=== PATIENT | male | born 1950 | race Caucasian/White ===

== ENCOUNTER 2021-11-27 13:52 | Outpatient (CLI) | payer MEDICARE, BC, OTHER, SELFPAY ==
[2021-11-27 15:17] LABS: Basophils Absolute Auto 0.1 K/mm3 (0.0-0.1); Basophils Percent Auto 0.9 % (0.2-1.2); Eosinophils Absolute Auto 0.2 K/mm3 (0-0.3); Eosinophils Percent Auto 2.3 % (0-4.4); Hematocrit 43.3 % (42.0-52.0); Hemoglobin 15.2 g/dL (14.0-18.0); Immature Granulocyte Absolute 0.04 K/mm3 (0.00-0.031); Immature Granulocyte Percent A 0.6 % (0-0.5); Lymphocytes Absolute Auto 1.44 K/mm3 (0.9-3.2); Lymphocytes Percent Auto 22.2 % (18.3-44.2); Mean Corpuscular HGB Conc 35.1 g/dl (32-36); Mean Corpuscular Volume 93.9 fl (80-100); Mean Platelet Volume 10.1 fl (7.4-10.4); Monocytes Absolute Auto 0.4 K/mm3 (0.1-0.6); Monocytes Percent Auto 6.5 % (2.6-8.5); Neutrophils Absolute Auto 4.4 K/mm3 (1.3-6.7); Neutrophils Percent Auto 67.5 % (45.5-73.1); Platelet Count Result 196 k/mm3 (150-375); Red Blood Count 4.61 M/mm3 (4.6-6.20); Red Cell Distribution Width 12.4 % (11.5-14.5); White Blood Count 6.5 K/mm3 (4.5-10.0)
[2021-11-27 15:24] LABS: Alanine Aminotransferase 26 U/L (4-50); Albumin Level 4.7 g/dL (3.5-5.1); Alkaline Phosphatase 72 U/L (38-126); Anion Gap 9 mmol/L (8-16); Aspartate Amino Transferase 31 U/L (17-59); Bilirubin,Total 1.7 mg/dL (0.2-1.3); Blood Urea Nitrogen 22 mg/dL (9-20); Calcium 9.8 mg/dL (8.4-10.2); Carbon Dioxide 29 mmol/L (22-30); Chloride 100 mmol/L (98-107); Estimated Glomerular Filt Rate 54; Glucose 89 mg/dL (65-110); Sodium 138 mmol/L (137-145)
[2021-11-27 15:27] LABS: Prothrombin Time 13.5 Seconds (11.1-14.7)
[2021-11-27 15:28] LABS: Partial Thromboplastin Time 37.9 SECONDS (22.3-36.8)
== END 2021-11-27 13:53 | disposition home or self-care (01) ==
LOC: ANHSURGERY 13:57
PROVIDERS: PCP Internal Medicine; Visit Provider Urology
DX: Z01.818 Encounter for other preprocedural examination (principal); C61 Malignant neoplasm of prostate
CPT/HCPCS: 36415; 80053; 85025; 85610; 85730; 86850; 86900; 86901; 87086

== ENCOUNTER 2021-11-28 08:49 | Outpatient (CLI) | payer MEDICARE, BC, OTHER, SELFPAY ==
--- NOTE | 2021-11-28 09:00 | ECG_ITS ---
Measurements Intervals [place] Rate: 65 P: 9 NV: 244 QRS: -35 QRSD: 102 T: -3 QT: 413 QTc: 431 Interpretive Statements SINUS RHYTHM WITH FIRST DEGREE AV BLOCK LEFT AXIS DEVIATION DELAYED PRECORDIAL R/S TRANSITION BORDERLINE T WAVE ABNORMALITY- INFERIOR LEADS BASELINE ARTIFACT- I, III, AVL ABNORMAL ECG Electronically Signed On 11-28-2021 9:06:32 SENIOR IT PROJECT MANAGER by Abelino Alcala D.O.
== END 2021-11-28 08:50 | disposition home or self-care (01) ==
PROVIDERS: PCP Internal Medicine; Visit Provider Urology
DX: C61 Malignant neoplasm of prostate (principal); I44.0 Atrioventricular block, first degree
CPT/HCPCS: 93005

== ENCOUNTER 2021-12-05 00:10 | Day surgery (SDC) | payer MEDICARE, BC, OTHER, SELFPAY ==
--- NOTE | 2021-11-27 13:57 | PC.NURSE ---
Report to the Outpatient Waiting Room, entrance under the green pavilion located off [facility], at time _0630_ on date _12/05/21_. OR Time: _0830 AM__. - You and your visitor will be asked a series of questions to screen for COVID 19 for your protection. - A mask is required within the hospital. - NO visitors are allowed at this time. Patient visitors will be guided where to wait when not with patient. Preoperative COVID Testing Requirements: No COVID Test needed if: (proof is required; if not received patient will have Rapid Test prior to entry) - Patient has received COVID Vaccine at least 14 days prior to procedure date or - Patient has positive COVID test result within last 90 days of surgery date. COVID Test needed if above criteria is not met If not COVID vaccinated a COVID test must be conducted within 72 hours of surgery and patient is asked to isolate self from time of testing until procedure. You will go to the [facility] for your COVID testing. The [facility] site is located at the corner of [address] [facility]. You will only be called if COVID results are positive and your surgeon may reschedule your elective surgery date. Patients may have clear liquids (water, carbonated beverages, clear teas, apple juice) until 3 hours prior to surgery with a maximum of 20 ounces. (0530 AM) - No food from midnight until time of surgery - Infants may have breast milk until 4 hours before surgery, infant formula 6 hours prior to surgery. - Children will be allowed to drink immediately following surgery. If applicable, please bring a bottle or sippy cup to assist with drinking. Juice, water, soda, and popsicles are readily available. For infants on formula, please bring formula the day of surgery. Pacifiers are allowed. Take the following medications with a SIP of water the morning of surgery: NONE Medications to discontinue per physician N/A Date to take last dose Please no make-up, nail kazakh, hairspray, perfume, deodorant, or body powder the day of surgery. No jewelry (including any body piercings) or valuables the day of surgery, leave them at home. Please take a shower or bath the night before, or the morning of, surgery with an antibacterial soap. Wear comfortable, loose fitting clothing. Children are encouraged to wear pajamas. - Jewelry must be removed prior to entering the operating room. Rings and piercings that are not removed may be cut off. - The hospital will not accept responsibility for valuables. - Please leave all valuables, including medications, at home the day of surgery. If you are going home after surgery, a licensed electric mule driver must drive you home. - NO public transportation without another adult. - We recommend that an adult stay with you for 24 hours following discharge. - We also recommend that you do not drive, make important decision, drink alcoholic beverages, or take any drugs that were not prescribed by your health care provider for at least 24 hours after your discharge time. For Pediatric surgeries, we recommend two adults accompany the child home (only one inside the building at this time). Follow any additional instructions given to you from your surgeon. Telephone instructions given to ___PT and asked if any additional questions and then verbalized understanding. Patient advised to call surgeon office or pre surgery nurse liaison [phone] if any additional questions.
[2021-11-27 14:11] VITALS: BP 146/80; PULSE 78; RESP 20; TEMP 36.4; O2SAT 98; BMI 27.1
--- NOTE | 2021-12-04 13:43 | P.PNAN_ITS ---
Anes - Initial Pre Proc Eval Procedure: Operation Date: 12/05/21 08:30 Proposed Procedures p Robotic Assisted Nerve Sparing Prostatectomy, Possible Bilateral Pelvic Lymph Node Dissection - Júnior Pacheco MD Date/Time: 12/04/21 13:43 Surgeon: Júnior Pacheco MD Pre Op Diagnosis: prostate CA Patient Data Age: 71 Gender: M Height: 1.8 m Weight: 88.2 kg Last Vital Signs Temp 97.5 F L 11/27/21 14:11 Pulse 78 11/27/21 14:11 Resp 20 11/27/21 14:11 BP 146/80 H 11/27/21 14:11 Pulse Ox 98 11/27/21 14:11 Allergies Allergy/AdvReac Type Severity Reaction Status Date / Time No Known Allergies Allergy Unverified 12/05/21 08:00 Home Medications Medication Instructions Recorded Confirmed Type lisinopril-hydrochlorothiazide 2 tablet QAM 11/27/21 12/05/21 History Patient hx anesthesia problems: none Family hx anesthesia problems: none Results Review: All pre-operative results and documents have been reviewed as part of the pre-operative evaluation. COUNT INCLUDES THE [facility] Past Medical History Medical History (Updated 12/04/21 @ 13:43 by Nawaf Lopez MD) Frequent PVCs Hypertension Prostate cancer Social History Social History Smoking status: Never smoker Second hand tobacco smoke exposure: No Alcohol intake: current Drinks per week: 2 Substance use: never Substance use type: does not use Living arrangements: with family Spiritual care concerns: No Anes - Eval Final PreProcedure Day of Procedure 12/04/21 13:43 Patient weight: overweight Heart: regular rate and rhythm Lungs: clear to auscultation Airway: Mallampati scale class II Neurological: alert and oriented Last oral intake: >/= 8 hours ASA classification: III Emergent: no Anesthetic plan: proceed Anesthesia type and monitoring: general ETT and standard monitoring Results Review: All pre-operative results and documents have been reviewed as part of the pre-operative evaluation. Informed Consent: The patient's anesthetic plan and its attendant risks and benefits were discussed with the patient/family/POA. Questions were solicited and answers provided to the satisfaction of the patient/family/POA.
[2021-12-05] VITALS (12 sets, daily range): BP systolic 94–145; BP diastolic 58–84; PULSE 53–96; RESP 7–18; TEMP 36–38; O2SAT 93–100
[2021-12-05] MEDS: LACTATED RINGERS 1,000 ML 30 ML IV CONT ×2 (07:04→12:17)
[2021-12-05 07:36] LABS: Partial Thromboplastin Time 36.5 SECONDS (22.3-36.8)
--- NOTE | 2021-12-05 08:20 | WPDHPUPDATE1 ---
History and Physical Update Update Date/Time: 12/05/21 08:20 History and Physical has been reviewed, including an updated exam of the patient. There are NO changes in the patient's condition. Risks, benefits, and alternatives have been discussed and questions answered. Patient agrees to proceed with procedure.
[2021-12-05] MEDS: ceFAZolin 2 GM/D5W 50 ML 2 GM/50 ML BAG IVPB (08:38)
[2021-12-05] MEDS: BUPIVACAINE HCL 0.5% PF 30 ML VIAL INFILTRATE (09:52)
--- NOTE | 2021-12-05 12:02 | W.PM.PROC2 ---
Procedure Note - Detailed Date of Procedure 12/05/21 Pre-op Diagnosis prostate CA Post-op Diagnosis same Procedure Performed Robotic assisted nerve-sparing prostatectomy with right pelvic lymph node dissection Surgeon Júnior Pacheco MD Anesthesia general Description of Procedure Patient is taken to the operative suite and correctly identified. Once anesthesia was obtained he was placed in a low-lying dorsal lithotomy position and prepped and draped usual sterile fashion. Eighteen Chadian Pino with 20 cc in the balloon were placed the bladder. Supraumbilical incision was made and carried down to the rectus fascia. Veress needle was inserted the abdomen was insufflated to 15 mmHg pressure. Camera port was placed under direct vision. Working ports were then placed. The placed was placed in steep Trendelenburg position and robot was docked. He had some mild adhesions along the left side. Posterior approach was then performed. Seminal vesicles were dissected down their entirety. Vas is were transected. Plane between the prostate and rectum developed. Bladder was then taken down the standard fashion. Space of Retzius developed bilaterally puboprostatic were taken down. Dorsal venous complex was isolated using a 0 Vicryl suture and secured to the pubic bone. Bladder neck was then dissected out in a bladder neck sparing approach. Posterior plane was then entered. Bilateral nerve-sparing was performed standard fashion the pedicles were clipped. Dorsal venous complex was transected urethral stump was then dissected out and transected. Specimen was placed in Endo-Catch bag. Right pelvic lymph node dissection was then performed a standard fashion. Clips were placed proximally distally. Obturator nerve was visualized at all times. A Jesús stitch was then placed using 0 Vicryl. The bladder neck was reanastomosed to the urethral stump with good approximation of mucosa using V lock suture in a running fashion. Bladder was filled through a 16 Ch[place] Pino with 180 cc. There was no evidence of extravasation. All lap, needle count sponge counts were correct. Some Surgicel was placed over the neurovascular bundles as well as the right obturator fossa. ANUM drain was placed through the 3rd working port site. This was secured. Specimen was brought out through the midline incision. Rectus fascia was closed using 0 Vicryl in a running fashion. Subcuticular stitches were placed. Incisions were anesthetized 1% lidocaine. All lap count needle count sponge counts were correct. Patient was taken recovery stable condition. Estimated Blood Loss 100 Drains Yes Pathology yes Complications No immediate complications Condition stable Disposition PACU
--- NOTE | 2021-12-05 13:04 | SUR.PHASEI ---
REPORT GIVEN TO OZ ROBLES RN
--- NOTE | 2021-12-05 14:23 | ADMGEN ---
This patient, Jose E Valencia, was admitted to [facility] Surgery-10. Patient/family oriented to hospital policies and general routines including ID bracelet, bed and alarms, visiting hours, pain management, procedures, bathroom and other care routines, personal items, smoking policy, room service/diet, and visiting hours. Information on how to activate the Rapid Response Team has been discussed. Patient/Family are encouraged to report perceived risks to care and to ask questions if they do not understand what they are told or what they should do.
[2021-12-05] MEDS: LACTATED RINGERS 1,000 ML 125 ML IV CONT ×2 (14:35→22:40)
[2021-12-05] MEDS: ONDANSETRON INJ 4 MG/2 ML VIAL IV PUSH (14:36)
[2021-12-05] MEDS: HYDROcodone/acetaminophen (*CRX) 5-325 MG TABLET 1 TAB PO (23:37)
[2021-12-06 03:18] VITALS: BP 112/65; PULSE 68; RESP 15; TEMP 36.7; O2SAT 94
[2021-12-06 04:49] VITALS: TEMP 37.1
[2021-12-06 04:54] LABS: Hematocrit 35.9 % (42.0-52.0); Hemoglobin 12.4 g/dL (14.0-18.0)
[2021-12-06 05:28] LABS: Anion Gap 7 mmol/L (8-16); Blood Urea Nitrogen 20 mg/dL (9-20); Calcium 8.5 mg/dL (8.4-10.2); Carbon Dioxide 25 mmol/L (22-30); Chloride 102 mmol/L (98-107); Estimated CRCL calculation 62 ml/min; Estimated Glomerular Filt Rate > 60; Glucose 136 mg/dL (65-110); Sodium 134 mmol/L (137-145)
[2021-12-06] MEDS: LACTATED RINGERS 1,000 ML 125 ML IV CONT (06:32)
[2021-12-06 06:53] VITALS: BP 119/61; PULSE 66; RESP 14; TEMP 37; O2SAT 97
--- NOTE | 2021-12-06 07:23 | WPDANESPN ---
Anes - Prog Note Post-Op Date/Time: 12/06/21 07:23 Cardiovascular status: normal Respiratory status: normal Airway patency: baseline Mental status: baseline Post-Op hydration status: normal Vital Signs: Last Vital Signs Temp 98.6 F 12/06/21 06:53 Pulse 66 12/06/21 06:53 Resp 14 12/06/21 06:53 BP 119/61 12/06/21 06:53 Pulse Ox 97 12/06/21 06:53 Pain Score (VAS): 12/04 I/O: Intake & Output 12/05/21 12/05/21 12/06/21 15:59 23:59 07:59 Intake Total 250 1000 1000 Output Total 457 431 7338 Balance 143 665 -700 Laboratory Tests 12/06/21 04:42 12/06/21 04:42 12/05/21 12/06/21 12/06/21 07:06 04:42 04:42 Hgb 12.4 L Hct 35.9 L APTT 36.5 Sodium 134 L Potassium 4.0 Chloride 102 Carbon Dioxide 25 Anion Gap 7 L BUN 20 Creatinine 1.00 Estim Creat Clear Calc 62 Estimated GFR > 60 Glucose 136 H Calcium 8.5 Post-procedural complaints: none Patient Feedback: Patient satisfied with anesthetic care.
--- NOTE | 2021-12-06 08:05 | WPDUROPN2 ---
Progress Note: A&P Assessment and Plan (1) Adenocarcinoma of prostate: Code(s): C61 - Malignant neoplasm of prostate Status: Acute Assessment and Plan: Ambulate this am. Will Have CATERING ASSISTANT see patient at lunch time. If doing well will discharge home with zhong. Re-evaluate julio output with ambulation. Subjective Subjective Date/Time Seen: 12/06/21 08:05 Post Op day: 1 (Robotic assist nerve sparing prostatectomy) Principal diagnosis: adenocarcinoma of prostate Interval history: Doing well. No complaints. No bradycardic episodes. Hemodynamically stable. Review of Systems Review of Systems: All systems reviewed & are unremarkable except as noted in HPI and below Exam Const: General: cooperative and no acute distress HENMT: Head: normal to inspection Chest: Chest palpation & inspection: normal inspection of the chest Resp: Effort & Inspection: normal respiratory effort Cardio: Rate: regular rate Rhythm: regular rhythm GI: Inspection: normal to inspection Urinary Catheter: Urinary Catheter: urine clear Objective Data Vital Signs Vital Signs: Vital Signs - 24 hr 12/05/21 12:17 12/05/21 12:30 12/05/21 12:45 Temperature 36.2 C L 36.4 C L Pulse Rate 53 L 57 L 60 Respiratory Rate 7 L 10 L 10 L Blood Pressure 108/65 128/73 129/84 Pulse Oximetry 100 100 100 12/05/21 13:00 12/05/21 13:15 12/05/21 13:30 Temperature 36.3 C L 36.6 C Pulse Rate 62 68 64 Respiratory Rate 14 14 12 Blood Pressure 131/70 124/68 125/58 L Pulse Oximetry 96 96 98 12/05/21 14:30 12/05/21 15:03 12/05/21 15:30 Temperature 36.0 C L Pulse Rate 96 62 62 Respiratory Rate 16 16 16 Blood Pressure 145/81 H 94/64 L 127/67 Pulse Oximetry 97 94 95 12/05/21 16:00 12/05/21 23:17 12/06/21 03:18 Temperature 38.0 C H 36.7 C Pulse Rate 65 87 68 Respiratory Rate 16 14 15 Blood Pressure 94/65 L 101/66 112/65 Pulse Oximetry 95 93 94 12/06/21 04:49 12/06/21 06:53 Temperature 37.1 C 37.0 C Pulse Rate 66 Respiratory Rate 14 Blood Pressure 119/61 Pulse Oximetry 97 Intake/Output Intake/Output: Intake & Output 12/03/21 12/04/21 12/05/21 12/06/21 23:59 23:59 23:59 23:59 Intake Total 1250 1000 Output Total 442 1700 Balance 808 -700 Meds/Results Medications: Active Medications Generic Name Dose Route Start Last Admin Trade Name Freq PRN Reason Stop Dose Admin Hydrocodone Bitart/Acetaminophen 1 tab 12/05/21 13:35 12/05/21 23:37 Hydrocodone/Acetaminophen (*Crx) 5-325 Mg Tablet PO 1 tab Q6H PRN Administration Pain Rated 1-3 Hydrocodone Bitart/Acetaminophen 2 tab 12/05/21 13:35 Hydrocodone/Acetaminophen (*Crx) 5-325 Mg Tablet PO Q6H PRN Pain Rated 4-6 Hydrochlorothiazide 25 mg 12/06/21 09:00 Hydrochlorothiazide 25 Mg Tablet PO QAM BARBY Hyoscyamine 0.125 mg 12/05/21 13:35 Hyoscyamine Sulfate 0.125 Mg Tablet SUBLINGUAL Q4H PRN Bladder Spasm Lactated Ringer's 1,000 mls @ 125 mls/hr 12/05/21 13:35 12/06/21 06:32 Lr - Lactated Ringers Iv IV CONT 125 mls/hr .Q8H BARBY Administration Ketorolac Tromethamine 15 mg 12/05/21 13:35 Ketorolac 15 Mg/Ml Vial (*Bkc) IV PUSH 12/06/21 13:34 Q6H PRN Pain Rated 4-6 Levofloxacin 500 mg 12/06/21 09:00 Levofloxacin 500 Mg Tablet PO DAILY [facility] Lisinopril 40 mg 12/06/21 09:00 Lisinopril 20 Mg Tablet BY MOUTH QAM BARBY Morphine Sulfate 1 mg 12/05/21 13:35 Morphine Sulfate (*Crx) 2 Mg/Ml Inj IV PUSH Q2H PRN Pain Rated 7-10 Naloxone HCl 0.1 mg 12/05/21 13:35 Naloxone Hcl 0.4 Mg/Ml Vial IV PUSH Q2M PRN Opiate Reversal Ondansetron HCl 4 mg 12/05/21 14:17 12/05/21 14:36 Ondansetron Inj 4 Mg/2 Ml Vial IV PUSH 4 mg Q6H PRN Administration Nausea And Vomiting Labs Labs: Laboratory Results - last 24 hr 12/06/21 12/06/21 04:42 04:42 Hgb 12.4 L Hct 35.9 L Sodium 134 L Potassium 4.0 Chloride
[2021-12-06] MEDS: hydroCHLOROthiazide 25 MG TABLET PO (08:29)
[2021-12-06] MEDS: levoFLOXacin 500 MG TABLET PO (08:29)
[2021-12-06] MEDS: lisinopriL 20 MG TABLET 40 MG BY MOUTH (08:30)
== END 2021-12-06 13:50 | disposition home or self-care (01) ==
LOC: ANHSURGERY 06:33 → ANHSUROVER 13:37
PROVIDERS: PCP Internal Medicine; Visit Provider Urology
PROC: 0VT04ZZ Resection of Prostate, Percutaneous Endoscopic Approach (ICD-10-PCS; CPT 55867; principal; 2021-12-05 08:30)
DX: C61 Malignant neoplasm of prostate (principal); I10 Essential (primary) hypertension; I49.3 Ventricular premature depolarization
CPT/HCPCS: 55866; 38571; S2900; 36415; 80048; 85014; 85018; 85730; 88305; 88309; A9270; J0690; J1100; J1170; J2250; J2405; J2704; J2710; J3010; J7030; J7120

== ENCOUNTER 2021-12-13 08:31 | Outpatient (CLI) | payer MEDICARE, BC, OTHER, SELFPAY ==
--- NOTE | ~2021-12-13 | XR_ITS ---
XR cystogram DATE: 12/13/2021 09:21 INDICATION: Status post prostate surgery for prostate cancer TECHNIQUE: Up to 325 cc radiopaque contrast material was allowed to enter the urinary bladder by katt schreiber through the existing Pino catheter under fluoroscopic visualization 1.2 minutes fluoroscopy time DAP 43 9 images COMPARISON: None FINDINGS: No intraluminal mass lesion of the urinary bladder or bladder contrast material extravasati on is noted. No vesicoureteral reflux. IMPRESSION: No evidence of bladder leak Reviewed, dictated and finalized at Location [facility]. Reviewed, dictated and finalized at location A. GALLERY DIRECTOR IMPRESSION: No evidence of bladder leak
== END 2021-12-13 08:32 | disposition home or self-care (01) ==
LOC: ANHIMG 08:32
PROVIDERS: PCP Internal Medicine; Visit Provider Urology
DX: C61 Malignant neoplasm of prostate (principal)
CPT/HCPCS: 51600; 74430; Q9967

== ENCOUNTER 2024-05-22 12:41 | Outpatient (CLI) | payer MEDICARE, BC, OTHER, SELFPAY ==
--- NOTE | ~2024-05-22 | PE_ITS ---
EXAMINATION: PET_PETPSMAST_PT DATE: 05/25/2024 06:57 INDICATION: Prostate cancer TECHNIQUE: 4.363 mCi of Locametz Ga-68([id number]) was administered i.v. Low dose computed baltazar ography (CT) images were acquired from the base of the brain to the base of the brain to the proximal thighs for attenuation correction and anatomic localization. Positron emission tomography (PET) imag es were acquired in the same distribution beginning 69 minutes after injection. Images including fuse d PET/CT images were reconstructed in axial, coronal, and sagittal planes. Automated exposure control technique was employed. The dose-length product was 1154.28mGy-cm. COMPARISON: None FINDINGS: Head/neck: Typical pattern of symmetric physiologic increased activity in the lacrimal, parotid and submandibula r glands as well as along the mucosa of the nasal and oral cavities, pharynx and hypopharynx. No path ologically enlarged cervical lymphadenopathy or suspicious foci of increased uptake in the visualized head or neck. Chest: Mild dependent atelectasis in the lower lungs. No suspicious pulmonary nodules, pneumonia or pleural effusion. Mild cardiomegaly with atherosclerotic coronary artery calcification. Aortic valve calcific lesion. Thoracic aorta is normal in caliber. Calcified left hilar lymph nodes consistent with old gr anulomatous disease. No pathologically enlarged or PSMA avid thoracic lymphadenopathy. Abdomen/pelvis/proximal thighs: Physiologic renal accumulation and excretion of activity in the kidneys, bladder and along portions o f ureters. Photopenic defect on the PET imaging associated with a 2.6 cm left renal cyst. Status post prostatectomy. Diffuse hepatic steatosis with focal sparing along the gallbladder fossa. There are c ouple subcentimeter low-attenuation hepatic cysts which are indiscernible on the PET imaging. Normal degree and slightly heterogenous pattern of increased uptake throughout the liver and spleen without radiologic correlate or dominant PSMA avid lesion. A small calcified gallstones in the dependent aspe ct of the otherwise normal gallbladder. The gallbladder, pancreas and bilateral adrenal glands are no rmal. Moderate uptake scattered throughout the bowels with typical duodenal and proximal jejunal pred ominance and without radiologic correlate, also likely physiologic. Normal appendix. Small fat-contai oksana left inguinal hernia. No other abnormal foci of increased uptake or pathologically enlarged lymp hadenopathy in the abdomen, pelvis or proximal thighs. Musculoskeletal: Moderate spondylosis throughout the cervical, thoracic and lumbar spine. Chronic appearing mild anter ior wedging of a few mid thoracic vertebral bodies and some larger Schmorl's nodes in the lumbar spin e. No suspicious lytic, blastic or PSMA avid bone lesions. IMPRESSION: 1. No pathologically enlarged lymphadenopathy or abnormal PSMA avid lesions to suggest metastatic dis ease. Reviewed, dictated and finalized at location B. IMPRESSION: 1. No pathologically enlarged lymphadenopathy or abnormal PSMA avid lesions to suggest metastatic disease.
== END 2024-05-22 12:42 | disposition home or self-care (01) ==
PROVIDERS: PCP Internal Medicine; Visit Provider Urology
DX: C61 Malignant neoplasm of prostate (principal)
CPT/HCPCS: 78815; A9596

== ENCOUNTER 2024-07-06 13:57 | Outpatient (CLI) | payer MEDICARE, BC, OTHER, SELFPAY ==
--- NOTE | ~2024-07-06 | MR_ITS ---
EXAMINATION: MR pelvis wo/w con DATE: 07/06/2024 15:31 INDICATION: Malignant neoplasm of prostate. TECHNIQUE: Magnetic resonance imaging (MRI) of the pelvis was performed without and with 16 mL MultiH ance intravenous contrast. COMPARISON: PET/CT 05/22/2024 FINDINGS: There are changes of prostatectomy. There are no pathologically enlarged lymph nodes. There is no gisele e intraperitoneal fluid. There is a left inguinal hernia containing fat. There is lumbar levoscoliosi s and severe spondylosis. IMPRESSION: 1. Prostatectomy. No evidence of malignancy. Reviewed, dictated and finalized at location A.
== END 2024-07-06 13:58 | disposition home or self-care (01) ==
LOC: ANHIMG 14:01
PROVIDERS: PCP Internal Medicine; Visit Provider Radiology Radiation Oncology
DX: C61 Malignant neoplasm of prostate (principal); N40.0 Benign prostatic hyperplasia without lower urinary tract symptoms
CPT/HCPCS: 72197; A9577